=== PATIENT | male | born 1950 | race Caucasian/White ===

== ENCOUNTER 2018-06-13 11:35 | Day surgery (SDC) | payer OTHER ==
[2018-06-12 14:40] VITALS: BMI 31.3
[2018-06-13] MEDS ORDERED: ONDANSETRON 4 MG/2 ML VIAL ONE ×2 (13:53→16:00)
[2018-06-13] MEDS ORDERED: MIDAZOLAM HCL 2 MG/2 ML SINGLE DOSE VIAL ONE (13:53)
[2018-06-13] MEDS ORDERED: PROPOFOL 20 ML ONE (13:53)
[2018-06-13] MEDS ORDERED: DEXAMETHASONE SOD PHOSPHATE 4 MG/1 ML VIAL ONE (13:53)
[2018-06-13] MEDS ORDERED: LIDOCAINE HCL/PF 2% SDV 5ML VIAL ONE (13:53)
[2018-06-13] MEDS ORDERED: BUPIVACAINE HCL 0.25% 125 MG/50 ML VIAL ONE (14:17)
--- NOTE | 2018-06-13 14:25 | OP ---
Operative Note - Note: Operative Date: 06/13/18 Pre-Operative Diagnosis: left knee medial meniscal tear Operation: left knee arthroscopy with partial medial meniscectomy Post-Operative Diagnosis: Same as Pre-op Surgeon: Tesfaye Farnsworth Anesthesiologist/COMPLEX CARE NURSE PRACTITIONER: June Chakraborty Anesthesia: General Operative Report Dictated: Yes
[2018-06-13] MEDS ORDERED: ceFAZolin SODIUM 1 GM VIAL ONE (14:49)
[2018-06-13] MEDS ORDERED: ONDANSETRON 4 MG/2 ML VIAL IVPUSH PRN (15:11)
[2018-06-13] MEDS ORDERED: oxyCODONE HCL 5 MG TABLET PO PRN (15:11)
[2018-06-13] MEDS ORDERED: BUPIVACAINE HCL/PF 0.25% (2.5MG/ML) 10 ML VIAL IJ ONE (15:12)
[2018-06-13] MEDS ORDERED: LACTATED RINGERS SOLUTION 1,000 ML IV SCH (15:15)
[2018-06-13 17:02] VITALS: TEMP 97.6
[2018-06-13 17:51] VITALS: BP 115/71; PULSE 63
== END 2018-06-13 17:53 | disposition home or self-care (01) ==
LOC: FASU 11:35
PROVIDERS: ATTEND Orthopaedic Surgery Sports Medicine
PROC: 0SBD4ZZ Excision of Left Knee Joint, Percutaneous Endoscopic Approach (ICD-10-PCS; principal; 2018-06-13 15:00)
DX: S83.282A Other tear of lateral meniscus, current injury, left knee, initial encounter (principal); X58.XXXA Exposure to other specified factors, initial encounter; Y93.9 Activity, unspecified; Y92.9 Unspecified place or not applicable
CPT/HCPCS: 94760